=== PATIENT | female | born 1995 ===

== ENCOUNTER 2023-06-20 07:00 | Inpatient (IN) | payer BC ==
[2023-06-20] MEDS ORDERED: ELECTROLYTE-148 SOLN 1,000 ML IV SCH (08:20)
[2023-06-20] MEDS: ELECTROLYTE-148 SOLN 1,000 ML IV SCH (08:30)
[2023-06-20 08:40] LABS: BASO % 0.7 % (0-2.0); EOS % 2.5 % (0-4.5); HEMATOCRIT 39.9 % (32.4-45.2); HEMOGLOBIN 13.5 GM/dL (10.7-15.3); LYMPH % 24.7 % (8-40); MCH 30.4 pg (25.7-33.7); MCHC 33.8 g/dl (32.0-36.0); MEAN CELL VOLUME 89.8 fl (80-96); MEAN PLT VOLUME 9.5 fl (7.5-11.1); NEUT % 62.1 % (42.8-82.8); PLATELET COUNT 235 10^3/uL (134-434); RBC 4.44 M/mm3 (3.60-5.2); RDW 13.9 % (11.6-15.6); WHITE BLOOD COUNT 9.5 K/mm3 (4.0-10.0)
[2023-06-20 08:44] LABS: INR 1.13 (0.83-1.09); PROTHROMBIN TIME (PATIENT) 13.1 SEC (9.7-13.0)
[2023-06-20 08:47] LABS: ACTIVATED PTT 29.6 SECONDS (25.2-36.5)
[2023-06-20] MEDS ORDERED: DINOPROSTONE 10 MG VAGINAL SUPPOSITORY VG ONE (09:00)
[2023-06-20 09:07] LABS: POTASSIUM 3.9 mmol/L (3.5-5.1)
[2023-06-20 09:08] LABS: CALCIUM 8.7 mg/dL (8.5-10.1)
[2023-06-20 09:09] LABS: BLOOD UREA NITROGEN 7.5 mg/dL (7-18)
[2023-06-20 09:12] LABS: CREATININE 0.7 mg/dL (0.55-1.3)
[2023-06-20 10:01] VITALS: BMI 23.0
[2023-06-20] MEDS ORDERED: PROMETHAZINE HCL 25 MG/1 ML VIAL ONE (11:57)
[2023-06-20] MEDS ORDERED: MEPERIDINE HCL 25 MG/ML VIAL ONE (11:57)
[2023-06-20] MEDS ORDERED: PROMETHAZINE HCL 25 MG/1 ML VIAL IVPB ONE (12:00)
[2023-06-20] MEDS ORDERED: MEPERIDINE HCL 25 MG/ML VIAL IVPB ONE (12:00)
[2023-06-20] MEDS ORDERED: FENTANYL/BUPIVACAINE/NS/PF - PCEA - 50 ML DISP.SYRIN EP ONE ×3 (14:36→23:51)
[2023-06-20] MEDS ORDERED: NALOXONE HCL 0.4 MG/ML VIAL IVPUSH PRN (15:10)
[2023-06-20] MEDS: FENTANYL/BUPIVACAINE/NS/PF - PCEA - 50 ML DISP.SYRIN EP SCH (19:55)
[2023-06-20] MEDS: OXYTOCIN 30 UNITS in 0.9% NS 30 UNIT/500 ML INFUS.BAG IVPB SCH (21:35)
[2023-06-20] MEDS ORDERED: OXYTOCIN 30 UNITS in 0.9% NS 30 UNIT/500 ML INFUS.BAG IVPB ONE (21:35)
[2023-06-21] MEDS ORDERED: FENTANYL CITRATE/PF 50 MCG/ML VIAL ONE ×2 (01:06→04:49)
[2023-06-21] MEDS ORDERED: FENTANYL/BUPIVACAINE/NS/PF - PCEA - 50 ML DISP.SYRIN EP ONE (03:26)
[2023-06-21] MEDS: FENTANYL/BUPIVACAINE/NS/PF - PCEA - 50 ML DISP.SYRIN EP SCH (04:00)
[2023-06-21] MEDS ORDERED: OXYTOCIN 30 UNITS in 0.9% NS 30 UNIT/500 ML INFUS.BAG IVPB ONE (04:47)
[2023-06-21] MEDS ORDERED: ceFAZolin SODIUM 1 GM VIAL ONE (04:49)
[2023-06-21] MEDS ORDERED: PHENYLEPHRINE HCL 10 MG/1 ML SINGLE DOSE VIAL ONE (04:49)
[2023-06-21] MEDS ORDERED: METOCLOPRAMIDE HCL INJECTION 10 MG/2 ML VIAL ONE (04:49)
[2023-06-21] MEDS ORDERED: ONDANSETRON 4 MG/2 ML VIAL ONE (04:49)
[2023-06-21] MEDS ORDERED: DEXAMETHASONE SOD PHOSPHATE 4 MG/1 ML VIAL ONE (04:49)
[2023-06-21] MEDS ORDERED: LIDOCAINE HCL/EPINEPHRINE/PF 10 ML VIAL ONE (04:50)
[2023-06-21] MEDS ORDERED: morphine SULFATE/PF 1 MG/2 ML (2cc Syringe - QUVA) EP ONE (05:40)
[2023-06-21] MEDS ORDERED: KETOROLAC TROMETHAMINE 30 MG/1 ML VIAL ONE (06:03)
[2023-06-21 06:20] LABS: CORD BASE EXCESS -6.7 mmol/L (0-2); CORD HCO3 20.9 mmHg (20-29); CORD HCO3 21.6 mmHg (20-29); CORD PCO2 48.8 mmHg (30-78); CORD pH 7.188 (7.14-7.44); CORD pH 7.25 (7.14-7.44)
[2023-06-21] MEDS ORDERED: IBUPROFEN 800 MG/8 ML IJ IVPB PRN (06:22)
[2023-06-21] MEDS ORDERED: BENZOCAINE 20% 57 GM BOTTLE TP PRN (06:22)
[2023-06-21] MEDS ORDERED: BENZOCAINE 28 GM HEMORRHOIDAL OINTMENT TP PRN (06:22)
[2023-06-21] MEDS ORDERED: ACETAMINOPHEN 325 MG TABLET (FP) PO PRN (06:22)
[2023-06-21] MEDS ORDERED: METHYLERGONOVINE MALEATE 0.2 MG/1 ML AMP IM PRN (06:22)
[2023-06-21] MEDS ORDERED: WITCH HAZEL 50% (TUCKS) 40 PAD/JAR PAD TP PRN (06:22)
[2023-06-21] MEDS: OXYTOCIN 20 UNITS in 0.9% NS 20 UNIT/1,000 ML INFUS.BAG IV SCH ×2 (06:30→17:15)
[2023-06-21] MEDS ORDERED: ONDANSETRON 4 MG/2 ML VIAL IVPUSH PRN (06:40)
[2023-06-21] MEDS ORDERED: ACETAMINOPHEN 1000 MG/100 ML BAG IVPB ONE (08:15)
[2023-06-21] MEDS: PRENATAL VITAMINS W/ FOLIC ACID TABLET (FP) PO SCH (10:00)
[2023-06-21] MEDS: CEFAZOLIN 1 GM in DEXTROSE 5%-WATER - 50 ML IVPB SCH ×2 (10:40→18:24)
[2023-06-21] MEDS: IBUPROFEN 600 MG TABLET (FP) PO PRN ×2 (19:35→23:20)
[2023-06-21] MEDS: SIMETHICONE 80 MG TAB.CHEW (FP) PO PRN (19:35)
[2023-06-21] MEDS: oxyCODONE HCL 5 MG TABLET PO PRN (21:18)
[2023-06-22] MEDS: CEFAZOLIN 1 GM in DEXTROSE 5%-WATER - 50 ML IVPB SCH (01:00)
[2023-06-22] MEDS: FENTANYL/BUPIVACAINE/NS/PF - PCEA - 50 ML DISP.SYRIN EP SCH ×3 (02:01→21:07)
[2023-06-22] MEDS: OXYTOCIN 30 UNITS in 0.9% NS 30 UNIT/500 ML INFUS.BAG IVPB SCH (02:02)
[2023-06-22] MEDS: ELECTROLYTE-148 SOLN 1,000 ML IV SCH ×2 (02:03→21:06)
[2023-06-22] MEDS: SIMETHICONE 80 MG TAB.CHEW (FP) PO PRN ×2 (03:21→22:47)
[2023-06-22] MEDS: oxyCODONE HCL 5 MG TABLET PO PRN ×4 (03:21→18:55)
[2023-06-22] MEDS ORDERED: BISACODYL 10 MG SUPP.RECT RC PRN (06:22)
[2023-06-22] MEDS: IBUPROFEN 600 MG TABLET (FP) PO PRN ×4 (07:17→22:47)
[2023-06-22 07:26] LABS: BASO % 0.3 % (0-2.0); EOS % 1.9 % (0-4.5); HEMOGLOBIN 10.1 GM/dL (10.7-15.3); LYMPH % 16.6 % (8-40); MCH 30.8 pg (25.7-33.7); MCHC 33.6 g/dl (32.0-36.0); MEAN CELL VOLUME 91.6 fl (80-96); MEAN PLT VOLUME 9.6 fl (7.5-11.1); MONO % 7.4 % (3.8-10.2); NEUT % 73.8 % (42.8-82.8); PLATELET COUNT 196 10^3/uL (134-434); RBC 3.27 M/mm3 (3.60-5.2); RDW 13.8 % (11.6-15.6); WHITE BLOOD COUNT 16.7 K/mm3 (4.0-10.0)
[2023-06-22] MEDS: PRENATAL VITAMINS W/ FOLIC ACID TABLET (FP) PO SCH (10:13)
[2023-06-22] MEDS: SENNOSIDES/DOCUSATE COMBO (SENNA PLUS) TABLET (UD) PO PRN ×2 (10:53→22:47)
[2023-06-22] MEDS: OXYTOCIN 20 UNITS in 0.9% NS 20 UNIT/1,000 ML INFUS.BAG IV SCH (20:44)
[2023-06-22 22:14] VITALS: RESP 18
[2023-06-23] MEDS: oxyCODONE HCL 5 MG TABLET PO PRN ×4 (02:03→19:57)
[2023-06-23] MEDS: IBUPROFEN 600 MG TABLET (FP) PO PRN ×2 (04:15→15:48)
[2023-06-23] MEDS: SIMETHICONE 80 MG TAB.CHEW (FP) PO PRN ×2 (04:15→19:57)
[2023-06-23] MEDS: PRENATAL VITAMINS W/ FOLIC ACID TABLET (FP) PO SCH (12:09)
[2023-06-23] MEDS: SENNOSIDES/DOCUSATE COMBO (SENNA PLUS) TABLET (UD) PO PRN (15:48)
[2023-06-23] MEDS ORDERED: DOCUSATE SODIUM 100 MG CAPSULE (FP) PO PRN (16:01)
[2023-06-24] MEDS: IBUPROFEN 600 MG TABLET (FP) PO PRN ×2 (01:13→08:29)
[2023-06-24] MEDS: oxyCODONE HCL 5 MG TABLET PO PRN (02:02)
[2023-06-24] MEDS: SIMETHICONE 80 MG TAB.CHEW (FP) PO PRN ×2 (02:02→08:29)
[2023-06-24 07:35] LABS: BASO % 0.7 % (0-2.0); EOS % 3.4 % (0-4.5); HEMOGLOBIN 10.7 GM/dL (10.7-15.3); LYMPH % 23.6 % (8-40); MCH 31.2 pg (25.7-33.7); MCHC 34.6 g/dl (32.0-36.0); MEAN CELL VOLUME 90.4 fl (80-96); MEAN PLT VOLUME 8.7 fl (7.5-11.1); NEUT % 66.3 % (42.8-82.8); PLATELET COUNT 226 10^3/uL (134-434); RBC 3.43 M/mm3 (3.60-5.2); RDW 13.7 % (11.6-15.6); WHITE BLOOD COUNT 8.8 K/mm3 (4.0-10.0)
[2023-06-24 08:34] VITALS: BP 99/58; PULSE 80; TEMP 98
[2023-06-24] MEDS: PRENATAL VITAMINS W/ FOLIC ACID TABLET (FP) PO SCH (09:02)
== END 2023-06-24 12:10 | disposition home or self-care (01) | DRG 788 ==
LOC: JLDR 07:00 → J3W 06-21 08:00
PROVIDERS: ADMIT Obstetrics & Gynecology; ATTEND Obstetrics & Gynecology
PROC: 3E0P7VZ Introduction of Hormone into Female Reproductive, Via Natural or Artificial Opening (ICD-10-PCS; 2023-06-20)
PROC: 10D00Z1 Extraction of Products of Conception, Low, Open Approach (ICD-10-PCS; principal; 2023-06-21)
DX: O48.0 Post-term pregnancy (principal); O76 Abnormality in fetal heart rate and rhythm complicating labor and delivery; O77.0 Labor and delivery complicated by meconium in amniotic fluid; Z37.0 Single live birth; Z3A.41 41 weeks gestation of pregnancy
CPT/HCPCS: 36415; 36600; 80048; 82803; 85025; 85610; 85730; 86780; 86850; 86900; 86901; 88307-TC